=== PATIENT | female | born 1995 | race Caucasian/White ===

== ENCOUNTER 2016-04-29 10:23 | Emergency (ER) | payer OTHER ==
[2016-04-29 10:56] VITALS: BP 146/100
--- NOTE | 2016-04-29 12:28 | UC ---
Respiratory Complaint HPI - HPI Summary HPI Summary: Cough, ethmoid sinus congestion, and sneezing x 3 days. Cough alternates between productive and nonproductive. Denies fever. - History of Current Complaint Chief Complaint: UCRespiratory Stated Complaint: COUGH Time Seen by Provider: 04/29/16 11:15 Hx Obtained From: Patient Hx Last Menstrual Period: 04/26/16 ?: Yes Onset/Duration: Gradual Onset Timing: Intermittent Episodes Severity Initially: Mild Severity Currently: Moderate Character: Sputum Description: - Yellow-thin, watery Aggravating Factors: Deep Breaths Alleviating Factors: Bronchodilator Associated Signs And Symptoms: Positive: URI, Nasal Congestion Related History: Seasonal Allergies - Risk Factors Pulmonary Embolism Risk Factors: Negative Cardiac Risk Factors: Negative Pseudomonas Risk Factors: Negative Tuberculosis Risk Factors: Negative - Allergies/Home Medications Allergies/Adverse Reactions: Allergies Allergy/AdvReac Type Severity Reaction Status Date / Time Cephalosporins Allergy Intermediate Hives Verified 07/08/14 08:55 Home Medications: Home Medications Fluticasone Furoate-Vilanterol [Breo Ellipta 200-25 Mcg/INH] 1 inh IN 04/29/16 [ History] Ibuprofen [Advil] 600 mg PO 04/29/16 [History] PMH/Surg Hx/FS Hx/Imm Hx Previously Healthy: Yes Endocrine History Of: Denies: Diabetes, Thyroid Disease Cardiovascular History Of: Denies: Cardiac Disorders, Hypertension Respiratory History Of: Reports: Asthma, Bronchitis, Pneumonia Denies: COPD GI/ History Of: Denies: Ulcer Neurological History Of: Denies: TIA, CVA, Dementia, Seizures, Migraine Psychological History Of: Denies: Anxiety, Depression, Bipolar Disorder, Schizophrenia, Post Traumatic Stress Disorder - Surgical History Surgical History: Yes Surgery Procedure, Year, and Place: L ankle. tooth extraction - Family History Known Family History: Positive: Hypertension - Father Family History: noncontributory - Social History Occupation: Employed Full-time - [employer] Lives: With Family Alcohol Use: Weekly Substance Use Type: None Smoking Status (MU): Never Smoked Tobacco Have You Smoked in the Last Year: No Review of Systems Constitutional: Fatigue Skin: Negative Eyes: Negative ENT: Nasal Discharge Respiratory: Cough Cardiovascular: Negative Gastrointestinal: Negative Genitourinary: Negative Motor: Negative Neurovascular: Negative Musculoskeletal: Negative Neurological: Negative Psychological: Negative All Other Systems Reviewed And Are Negative: Yes Physical Exam Triage Information Reviewed: Yes Appearance: Well-Appearing, No Pain Distress, Well-Nourished Vital Signs: Initial Vital Signs Temp 97.3 F 04/29/16 10:51 Pulse 103 04/29/16 10:51 Resp 18 04/29/16 10:51 BP 146/100 04/29/16 10:51 Pulse Ox 99 04/29/16 10:51 Vital Signs Reviewed: Yes Eye Exam: Normal Eyes: Positive: Conjunctiva Clear ENT Exam: Other ENT: Positive: Nasal congestion, Nasal drainage, Other: - Ethmpoid sinus tenderness Dental Exam: Normal Neck: Positive: Supple, Nontender, No Lymphadenopathy Respiratory: Positive: Lungs clear, Normal breath sounds, No respiratory distress, No accessory muscle use Cardiovascular Exam: Normal Cardiovascular: Positive: RRR, No Murmur, Pulses Normal Abdominal Exam: Normal Abdomen Description: Positive: Nontender, No Organomegaly, Soft Bowel Sounds: Positive: Present Musculoskeletal Exam: Normal Musculoskeletal: Positive: Strength Intact, ROM Intact Neurological Exam: Normal Neurological: Positive: Alert, Muscle Tone Normal Psychological Exam: Normal Skin Exam: Normal UC Diagnostic Evaluation - Laboratory O2 Sat by Pulse Oximetry: 99 Respiratory Course/Dx - Differential Dx/Diagnosis Provider Diagnoses: acute bronchitis Discharge - Discharge Plan Condition: Stable Disposition: HOME Prescriptions: Albuterol HFA INHALER* [Ventolin HFA Inhaler*] 1 - 2 puff INH Q4H PRN #1 mdi PRN Reason: wheeze, cough Guaifenesin-Codeine [Guaiatussin AC] 5 - 10 ml PO Q6H #120 ml MDD 40mL Patient Education Materials: Acute Bronchitis (ED) Forms: *Work Release Referrals: No Primary Care Phys,NOPCP [Primary Care Provider] - If Needed (Call or return if you develop increasing fever, shortness of breath, chest pain , bloody sputum, or otherwise worsen. If you have not improved at all after several days, contact your primary care physician or return here. ) Additional Instructions: Your chest x-ray does not appear to have any pneumonia on it. A radiologist will also read your films, and if they see a problem we missed we will call you. Call or return if you develop increasing fever, shortness of breath, chest pain , bloody sputum, or otherwise worsen. If you have not improved at all after several days, contact your primary care physician or return here.
--- NOTE | 2016-04-29 12:34 | RAD ---
Indication: Cough, pneumonia. 2 views of the chest including dual energy PA views demonstrate no mediastinal shift. Heart is of normal size and configuration. Lung vázquez demonstrate no pleural fluid, pneumonia or pneumothorax. IMPRESSION: No active cardiopulmonary disease is noted.
== END 2016-04-29 12:45 | disposition home or self-care (01) ==
LOC: UCEAST 10:23
DX: J20.9 Acute bronchitis, unspecified (principal); Z88.1 Allergy status to other antibiotic agents
CPT/HCPCS: 71020; 99212; G0463

== ENCOUNTER 2018-07-19 10:10 | Emergency (ER) | payer OTHER ==
[2018-07-19 10:28] VITALS: BP 141/98
--- NOTE | 2018-07-19 10:29 | UC ---
Skin Complaint HPI - HPI Summary HPI Summary: 22 yo female presents with multiple insect bites. She tells me that 2 days ago she woke up in the morning and noticed a bug bite to her left thigh, back, and right hand that were painful and itchy. Yesterday these areas enlarged - especially on her thigh and became warm to touch with increased pain. Today symptoms have continued. She has been applying benadryl cream with no relief of itch or pain. She is unsure what she was bitten by. Has not had any new bites since the initial incident. No recent travel or new sleeping quarters. Denies fever, chills. She tells me that she has a hx of dermatographia and her skin is very sensitive at baseline. - History of Current Complaint Chief Complaint: UCSkin Time Seen by Provider: 07/19/18 10:29 Stated Complaint: SKIN ISSUE Hx Obtained From: Patient Hx Last Menstrual Period: 06/28/18 Onset/Duration: Gradual Onset Onset Severity: Moderate Current Severity: Moderate Pain Intensity: 6 Pain Scale Used: 0-10 Numeric - Allergy/Home Medications Allergies/Adverse Reactions: Allergies Allergy/AdvReac Type Severity Reaction Status Date / Time Cephalosporins Allergy Hives Verified 07/19/18 10:17 Home Medications: Home Medications Loratadine [Claritin 10 MG CAP] 10 mg PO DAILY 07/19/18 [History Confirmed 07/19] ValACYclovir (*) [Valtrex 500 mg (*)] 500 mg PO DAILY 07/19/18 [History Confirmed 07/19/18] PMH/Surg Hx/FS Hx/Imm Hx - Additional Past Medical History Additional PMH: Dermatographia Respiratory History: Asthma - Surgical History Surgical History: Yes Surgery Procedure, Year, and Place: L ankle. wisdom tooth extraction - Family History Known Family History: Positive: Hypertension - Father - Social History Lives: With Family Alcohol Use: Occasionally Substance Use Type: Marijuana Substance Use Comment - Amount & Last Used: states occasional Smoking Status (MU): Never Smoked Tobacco Have You Smoked in the Last Year: No Review of Systems All Other Systems Reviewed And Are Negative: Yes Constitutional: Positive: Negative Skin: Positive: Other - insect bites Respiratory: Positive: Negative Cardiovascular: Positive: Negative Musculoskeletal: Positive: Negative Neurological: Positive: Negative Psychological: Positive: Negative Physical Exam - Summary Physical Exam Summary: GENERAL: NAD. WDWN. No pain distress. SKIN: LEFT THIGH: Lateral thigh with three area of two <1mm puncture wounds. Surround mild erythema, induration, edema, and warmth. Right ring finger with two similar appearing bites. Mid back with similar appearing bite. No streaking , bleeding, or drainage. NECK: Supple. Nontender. No lymphadenopathy. CHEST: No accessory muscle use. Breathing comfortably and in no distress. CV: Pulses intact. Cap refill <2seconds NEURO: Alert. PSYCH: Age appropriate behavior. Triage Information Reviewed: Yes Vital Signs: Initial Vital Signs Temp 97.6 F 07/19/18 10:20 Pulse 89 07/19/18 10:20 Resp 16 07/19/18 10:20 BP 141/98 07/19/18 10:20 Pulse Ox 99 07/19/18 10:20 Vital Signs Reviewed: Yes Course/Dx - Course Course Of Treatment: Suspect spider bites. The bites on her left thigh appear most concerning with some mild-moderate surrounding cellulitis. The bites have no sign of necrotic tissue and are without drainage. Will start her on Augmentin for cellulitis s/p suspected spider bite. She has washed her bedding and her room "floor to ceiling " since the initial bites and has had no more since that time. The borders of the cellulitis on her left thigh were marked with a purple marking pen - she was advised to f/u if redness/swelling extend beyond this area. - Diagnoses Provider Diagnosis: Cellulitis, Spider bite Discharge - Sign-Out/Discharge Documenting (check all that apply): Patient Departure All imaging exams completed and their final reports reviewed: No Studies - Discharge Plan Condition: Stable Disposition: HOME Prescriptions: Amoxicillin/Clavulanate TAB* [Augmentin TAB 875*] 875 mg PO BID #14 tab Patient Education Materials: Insect Bite or Sting (ED) Referrals: No Primary Care Phys,NOPCP [Primary Care Provider] - Additional Instructions: If you develop a fever, shortness of breath, chest pain, new or worsening symptoms - please call your PCP or go to the ED. Your blood pressure was mildly elevated at todays visit. Please see your primary provider within 4 weeks for recheck and re-evaluation. 1) Monitor the area and if the redness/swelling/pain worsens - please be rechecked 2) Apply ice to the areas to decrease pain and swelling - Billing Disposition and Condition Condition: STABLE Disposition: Home
== END 2018-07-19 10:53 | disposition home or self-care (01) ==
LOC: UCEAST 10:10
DX: L03.116 Cellulitis of left lower limb (principal); L03.312 Cellulitis of back [any part except buttock and flank]; L03.113 Cellulitis of right upper limb
CPT/HCPCS: 99212; G0463